=== PATIENT | male | born 1995 ===

== ENCOUNTER → 2017-10-05 | Outpatient (CLI) | payer OTHER ==
--- NOTE | 2017-10-05 09:31 | DIAGNOSTIC IMAGING REPORT ---
RIGHT HAND 3 VIEWS HISTORY: RIGHT HAND PAIN COMPARISON: None. FINDINGS: Soft tissue swelling at the PIP joint of the right fifth finger. Nondisplaced fracture within the head of the proximal phalanx of the right fifth finger. This extends to the PIP joint. No dislocation. No radiopaque foreign bodies. IMPRESSION: Nondisplaced fracture within the head of the proximal phalanx of the right fifth finger. Electronically signed by: Dutch Garcia M.D. 10/05/2017 9:30 AM Dictated Date/Time: 10/05/2017 9:27 AM
== END | disposition home or self-care (01) ==
LOC: C.RDSM 09:10
PROVIDERS: ATTEND Family Medicine
DX: S62.646A Nondisplaced fracture of proximal phalanx of right little finger, initial encounter for closed fracture (principal); X58.XXXA Exposure to other specified factors, initial encounter